=== PATIENT | female | born 1995 | race Caucasian/White ===

== ENCOUNTER 2019-12-17 11:28 | Inpatient (IN) | payer BC ==
[~2019-12-17] VITALS: Ht 170.2 cm; Wt 78.6 kg
[2019-12-17 20:15] VITALS: BP 115/68
[2019-12-17] MEDS ORDERED: LIDOCAINE 1%, 20ML ONE (20:27)
[2019-12-17] MEDS ORDERED: OXYTOCIN 30U/ 0.9% NaCL 500ML 500 ML ONE (20:27)
[2019-12-17] MEDS ORDERED: MISOPROSTOL 200 MCG TABLET ONE (20:27)
[2019-12-17] MEDS ORDERED: NEWBORN KIT ONE (20:27)
[2019-12-17] MEDS ORDERED: MISOPROSTOL 25 MCG TABLET ONE (20:27)
[2019-12-17] MEDS ORDERED: SODIUM CITRATE/CITRIC ACID 30 ML UDC PO PRN (20:30)
[2019-12-17] MEDS ORDERED: TERBUTALINE 1 MG/ML, 1ML IVPush PRN (20:30)
[2019-12-17] MEDS ORDERED: ALUMINUM/MAG/SIMETHICONE 30 ML UDC PO PRN (20:30)
[2019-12-17] MEDS ORDERED: OXYTOCIN 30U/ 0.9% NaCL 500ML 500 ML IV ONE (20:30)
[2019-12-17] MEDS ORDERED: FENTANYL PF 100 MCG/2ML IVPush PRN (20:30)
[2019-12-17] MEDS ORDERED: METOCLOPRAMIDE 5 MG/ML, 2ML IVPush PRN (20:30)
[2019-12-17] MEDS: D5%-LACTATED RINGERS 1,000 ML IV SCH (20:30)
[2019-12-17] MEDS ORDERED: FENTANYL PF 100 MCG/2ML IV PRN (20:30)
[2019-12-17] MEDS ORDERED: CALCIUM CARBONATE 500 MG TAB.CHEW PO PRN (20:30)
[2019-12-17] MEDS ORDERED: ONDANSETRON 2MG/ML, 2ML IVPush PRN (20:30)
[2019-12-17] MEDS ORDERED: TERBUTALINE 1 MG/ML, 1ML SQ PRN (20:30)
[2019-12-17] MEDS: LACTATED RINGERS 1,000 ML IV SCH (20:30)
[2019-12-17] MEDS ORDERED: OXYTOCIN 30U/ 0.9% NaCL 500ML 500 ML IV PRN (20:30)
[2019-12-17] MEDS ORDERED: PLEASE ENTER ALLERGIES MC SCH (21:00)
[2019-12-17] MEDS: MISOPROSTOL 25 MCG TABLET VG PRN (21:09)
[2019-12-17 21:17] LABS: BASOPHILS # (AUTO) 0.04 x10^3/uL (0-0.1); BASOPHILS % (AUTO) 0 % (0-1); EOSINOPHILS # (AUTO) 0.21 x10^3/uL (0-0.4); EOSINOPHILS % (AUTO) 2 % (1-7); LYMPHOCYTES # (AUTO) 2.79 x10^3/uL (1-3.4); LYMPHOCYTES % (AUTO) 25 % (22-44); MD NO; MEAN CORPUSCULAR HEMOGLOBIN 30.7 pg (27.0-34.8); MEAN CORPUSCULAR HGB CONC 33.6 g/dL (32.4-35.8); MEAN CORPUSCULAR VOLUME 91.4 fL (80-100); MEAN PLATELET VOLUME 9.4 fL (7.4-10.4); MONOCYTES # (AUTO) 0.65 x10^3/uL (0.2-0.8); MONOCYTES % (AUTO) 6 % (2-9); NEUTROPHILS # (AUTO) 7.48 x10^3/uL (1.8-6.8); NEUTROPHILS % (AUTO) 67 % (42-75); PLATELET COUNT 194 x10^3/uL (130-400); RED CELL DISTRIBUTION WIDTH 12.6 % (9.6-15.2)
[2019-12-18] MEDS ORDERED: MISOPROSTOL 25 MCG TABLET ONE (01:09)
[2019-12-18 01:12] VITALS: BP 97/56
[2019-12-18] MEDS: LACTATED RINGERS 1,000 ML IV SCH ×3 (04:30→20:00)
[2019-12-18] MEDS: D5%-LACTATED RINGERS 1,000 ML IV SCH ×2 (04:30→12:30)
[2019-12-18] MEDS: MISOPROSTOL 25 MCG TABLET VG PRN (05:51)
[2019-12-18] MEDS ORDERED: OXYTOCIN 30U/ 0.9% NaCL 500ML 500 ML ONE (17:00)
[2019-12-18] MEDS ORDERED: LACTATED RINGERS 1,000 ML IV SCH (19:29)
[2019-12-18] MEDS ORDERED: FENTANYL/BUPIV./NS/PF 250 ML EPIDCONT SCH (19:29)
[2019-12-18] MEDS ORDERED: LACTATED RINGERS 1,000 ML IVBOLUS PRN (19:30)
[2019-12-18] MEDS ORDERED: NALOXONE 0.4 MG/ML, 1ML IVPush PRN (19:30)
[2019-12-18] MEDS ORDERED: EPHEDRINE 50 MG/ML, 1ML IVPush PRN (19:30)
[2019-12-18] MEDS ORDERED: BUPIVACAINE 0.25% ONE (19:31)
[2019-12-18] MEDS ORDERED: LIDOCAINE/PF 1.5% EPI 1:200K, 10 ML ONE (19:32)
[2019-12-18] MEDS ORDERED: FENTANYL/BUPIV./NS/PF 250 ML EPIDCONT ONE (19:32)
[2019-12-18 19:36] VITALS: BP 126/77
[2019-12-19] MEDS: OXYTOCIN 30U/ 0.9% NaCL 500ML 500 ML IV SCH ×3 (01:38→21:38)
[2019-12-19] MEDS ORDERED: ACETAMINOPHEN 325 MG TABLET PO PRN ×2 (02:00)
[2019-12-19] MEDS ORDERED: METHYLERGONOVINE 0.2 MG/ML IM PRN (02:00)
[2019-12-19] MEDS ORDERED: MISOPROSTOL 200 MCG TABLET PR PRN (02:00)
[2019-12-19] MEDS ORDERED: HYDROcodone/APAP 5/325 TABLET PO PRN (02:00)
[2019-12-19] MEDS ORDERED: ONDANSETRON 2MG/ML, 2ML IV PRN (02:00)
[2019-12-19] MEDS ORDERED: SIMETHICONE 80 MG CHEW TAB PO PRN (02:00)
[2019-12-19 03:00] VITALS: BP 105/62
[2019-12-19] MEDS: IBUPROFEN 600 MG TABLET PO PRN ×3 (05:19→19:31)
[2019-12-19 07:15] VITALS: BP 118/74
[2019-12-19] MEDS: DOCUSATE 100 MG CAPSULE PO PRN ×2 (07:35→19:31)
[2019-12-19] MEDS: PRENATAL VIT/IRON/FA 1 EACH TABLET PO SCH (07:35)
[2019-12-19 09:13] LABS: BASOPHILS # (AUTO) 0.01 x10^3/uL (0-0.1); BASOPHILS % (AUTO) 0 % (0-1); EOSINOPHILS # (AUTO) 0.12 x10^3/uL (0-0.4); EOSINOPHILS % (AUTO) 1 % (1-7); LYMPHOCYTES # (AUTO) 1.36 x10^3/uL (1-3.4); LYMPHOCYTES % (AUTO) 11 % (22-44); MD NO; MEAN CORPUSCULAR HEMOGLOBIN 30.5 pg (27.0-34.8); MEAN CORPUSCULAR VOLUME 92.2 fL (80-100); MEAN PLATELET VOLUME 9.6 fL (7.4-10.4); MONOCYTES # (AUTO) 0.61 x10^3/uL (0.2-0.8); MONOCYTES % (AUTO) 5 % (2-9); NEUTROPHILS % (AUTO) 83 % (42-75); PLATELET COUNT 170 x10^3/uL (130-400); RED BLOOD COUNT 3.91 x10^6/uL (3.82-5.3); RED CELL DISTRIBUTION WIDTH 12.7 % (9.6-15.2)
[2019-12-19 12:15] VITALS: BP 113/73
[2019-12-19 16:37] VITALS: BP 110/70
[2019-12-19 20:05] VITALS: BP 103/66
[2019-12-20 00:29] VITALS: BP 107/69
[2019-12-20] MEDS: IBUPROFEN 600 MG TABLET PO PRN ×2 (01:35→08:24)
[2019-12-20] MEDS: OXYTOCIN 30U/ 0.9% NaCL 500ML 500 ML IV SCH (07:38)
[2019-12-20] MEDS: PRENATAL VIT/IRON/FA 1 EACH TABLET PO SCH (08:23)
[2019-12-20] MEDS: DOCUSATE 100 MG CAPSULE PO PRN (08:24)
[2019-12-20 08:30] VITALS: BP 110/71
[2019-12-20] MEDS ORDERED: MEASLES,MUMPS&RUBELLA VACC/PF 0.5 ML SQ-VACC ONE (11:30)
[2019-12-20] MEDS ORDERED: PREN1TAB60 PO (11:55)
[2019-12-20] MEDS ORDERED: DOCU-131 PO (11:56)
[2019-12-20] MEDS ORDERED: IBUP-1223 PO (11:57)
== END 2019-12-20 13:00 | disposition home or self-care (01) | DRG 807 ==
LOC: LDIP 20:13 → 2NW 12-19 02:34
PROVIDERS: ADMIT Obstetrics & Gynecology; ATTEND Obstetrics & Gynecology
PROC: 10E0XZZ Delivery of Products of Conception, External Approach (ICD-10-PCS; principal; 2019-12-19)
PROC: 0KQM0ZZ Repair Perineum Muscle, Open Approach (ICD-10-PCS; 2019-12-19)
PROC: 0UQMXZZ Repair Vulva, External Approach (ICD-10-PCS; 2019-12-19)
PROC: 10907ZC Drainage of Amniotic Fluid, Therapeutic from Products of Conception, Via Natural or Artificial Opening (ICD-10-PCS; 2019-12-19)
PROC: 0U7C7ZZ Dilation of Cervix, Via Natural or Artificial Opening (ICD-10-PCS; 2019-12-19)
PROC: 3E0R3BZ Introduction of Anesthetic Agent into Spinal Canal, Percutaneous Approach (ICD-10-PCS; 2019-12-19)
PROC: 00HU33Z Insertion of Infusion Device into Spinal Canal, Percutaneous Approach (ICD-10-PCS; 2019-12-19)
PROC: 3E0234Z Introduction of Serum, Toxoid and Vaccine into Muscle, Percutaneous Approach (ICD-10-PCS; 2019-12-20)
DX: O99.52 Diseases of the respiratory system complicating childbirth (principal); Z37.0 Single live birth; O70.1 Second degree perineal laceration during delivery; J45.909 Unspecified asthma, uncomplicated; Z3A.39 39 weeks gestation of pregnancy; Z23 Encounter for immunization; O71.82 Other specified trauma to perineum and vulva
CPT/HCPCS: 36415; 85025; 86592; 86850; 86900; 87635; G0378; J2590; J7120